=== PATIENT | female | born 1985 | race Caucasian/White ===

== ENCOUNTER 2022-06-06 01:42 | Emergency (ER) | payer OTHER, SELFPAY ==
--- NOTE | ~2022-06-06 | XR_ITS ---
EXAMINATION: XR finger 5th RT min 2V DATE: 06/06/2022 02:05 INDICATION: Right hand fifth digit injury. TECHNIQUE: 3 views of right hand fifth digit were obtained. COMPARISON: None. FINDINGS: Bone alignment is normal. No fracture. Joint spaces are well maintained. IMPRESSION: 1. No fracture. Reviewed, dictated and finalized at location A. IMPRESSION: 1. No fracture.
[2022-06-06 01:47] VITALS: BP 163/81; PULSE 88; RESP 16; TEMP 36.7; O2SAT 99
[2022-06-06] MEDS: IBUPROFEN 600 MG TABLET PO (02:22)
--- NOTE | 2022-06-06 02:22 | ED.GENADULT ---
HPI - General Adult General Chief complaint: Extremity Injury, Upper Stated complaint: right 5th finger injury Time Seen by Provider: 06/06/22 01:46 Source: RN notes reviewed History of Present Illness HPI narrative: Patient presents emergency department from home for right fifth finger pain. Patient states she initially hurt the finger 2 months ago when her family's puppy jumped up and hit her in the right pinky she states that she has had pain since that time but pain again became worse yesterday states she denies any new trauma or injury to the finger but states the pain is worse to extend she denies any redness or swelling of the finger states she has not taking pain medication she denies any numbness or tingling Related Data Allergies Allergy/AdvReac Type Severity Reaction Status Date / Time codeine Allergy Mild Other Verified 06/06/22 02:17 pseudoephedrine Allergy Unknown Other Verified 06/06/22 02:17 Review of Systems Review of Systems: Gen.: Denies fevers or chills Musculoskeletal: See HPI Neuro: Denies numbness, tingling, weakness Skin: Denies rash Endo: Denies DM PMFSH Past Medical History Medical History (Updated 06/06/22 @ 02:25 by Jacob Vicente DO) Patient denies significant medical history Social History Social History (Updated 06/06/22 @ 02:23 by Jacob Vicente DO) Smoking status: Never smoker Exam Narrative: APPEARANCE: No acute distress, nontoxic, resting in bed Eyes: EOMI HEENT: Normocephalic, atraumatic, RESPIRATORY: No respiratory distress MUSCULOSKELETAl: Right fifth finger is tender to palpation over the palmar and dorsal aspect of the proximal phalanx there is no swelling ecchymosis or erythema pain with extension of the right fifth digit at the MCP and PIP joint, not able to fully extend full flexion of the finger capillary refill less than 3 seconds neurovascular intact the remainder of the right hand is nontender to palpation NEURO: Awake and alert. Following commands, speech normal, no focal deficits SKIN:: Warm, dry. Normal Color no rash or lesions Course Course Emergency Course: Discussed with patient results of workup and diagnosis. Discussed need for follow-up with primary care, proper use of medication, and reasons to return to the emergency department. Patient understands and agrees to current treatment plan Vital Signs Vital signs: Vital Signs Temperature 98.0 F 06/06/22 01:47 Pulse Rate 88 06/06/22 01:47 Respiratory Rate 16 06/06/22 01:47 Blood Pressure 163/81 H 06/06/22 01:47 Pulse Oximetry 99 06/06/22 01:47 Oxygen Delivery Room Air 06/06/22 01:47 Temperature 98.0 F 06/06/22 01:47 Pulse Rate 88 06/06/22 01:47 Respiratory Rate 16 06/06/22 01:47 Blood Pressure 163/81 H 06/06/22 01:47 Pulse Oximetry 99 06/06/22 01:47 Oxygen Delivery Room Air 06/06/22 01:47 Medical Decision Making Vital Signs Vital Signs: Vital Signs Temperature 98.0 F 06/06/22 01:47 Pulse Rate 88 06/06/22 01:47 Respiratory Rate 16 06/06/22 01:47 Blood Pressure 163/81 H 06/06/22 01:47 Pulse Oximetry 99 06/06/22 01:47 Oxygen Delivery Room Air 06/06/22 01:47 Temperature 98.0 F 06/06/22 01:47 Pulse Rate 88 06/06/22 01:47 Respiratory Rate 16 06/06/22 01:47 Blood Pressure 163/81 H 06/06/22 01:47 Pulse Oximetry 99 06/06/22 01:47 Oxygen Delivery Room Air 06/06/22 01:47 Imaging Data Attestation: I personally reviewed and interpreted this imaging study as follows: My impression: Finger x-ray reviewed by myself shows no acute process Discharge Plan Discharge Clinical Impression: Other sprain of right little finger, initial encounter Patient Disposition: Home, Self-Care Condition: Stable Instructions: Antibiotic Form, Finger Sprain (ED) Additional Instructions: Return for increasing pain numbness or tingling the extremities or any other symptoms of concern Prescriptions: New ibuprofen 600
== END 2022-06-06 02:57 | disposition home or self-care (01) ==
PROVIDERS: Emergency Provider Emergency Medicine; PCP Family Medicine Adolescent Medicine
DX: S63.696A Other sprain of right little finger, initial encounter (principal); W54.1XXA Struck by dog, initial encounter
CPT/HCPCS: 29130; 73140; 99283; A9270

== ENCOUNTER 2022-06-17 09:00 | Outpatient (RCR) | payer OTHER, SELFPAY ==
--- NOTE | 2022-06-08 11:54 | OTOPEVAL1 ---
Assessment and note entered by Nael Hines, HARPREETR/Cj, CHT Evaluation Information Assessment Status Evaluation Diagnosis Acute stenosing tenosynovitis right small finger Subjective Information Patient reports an injury to the finger about two months ago when she was playing a puppy and her small finger accidently got hyperextended. She did not get this looked at back then. 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 She reports a sudden increased in pain and stiffness when she did a push up with her hands in tight fists. She states the pinky finger got stuck into flexion after this and was so painful she went to the ER ( 06/06/22). She has been splinted with the entire pinky immobilized x1 day. Has removed for shower/ hygiene. Reported Pain Level Pain Score 0: Self Report Additional Pain Score Comments At rest - no pain With active ROM - pain increases to 3/10 Assessment OT Clinical Summary Patient referred to outpatient OT with dx of stenosing tenosynovitis of the right small finger which is restricting her active motion and use of that hand due to pain, weakness, and stiffness. She will benefit from skilled OT for splinting, HEP instruction, modalities, ROM, and progression to strengthening to facilitate optimal functional hand use of her right, dominant hand. Plan of Care Interventions Therapeutic Exercise,Manual Therapy,Therapeutic Activities,Hot Pack/Cold Pack,Check Out for Orthotic/Pr,Ultrasound,Paraffin OT Services Indicated Yes Treatment Frequency and 1x/week for 4 weeks Duration These treatments will address the objective and functional deficits as defined above. The patient will be advanced safely and appropriately in order for the patient to progress towards his/her prior level of function. Additional exercises will be introduced and as well as a comprehensive home exercise program upon discharge, if needed, ?to ensure carryover of functional gains achieved in the clinic. This treatment plan has been reviewed and agreement upon by the patient.
--- NOTE | 2022-06-17 09:30 | OTOPDC ---
Assessment and note entered by Nael Hines, ENEDINA/Cj, CHT Evaluation Information Assessment Status Discharge Diagnosis Acute stenosing tenosynovitis right small finger Subjective Information Patient reports an injury to the finger about two months ago when she was playing a puppy and her small finger accidently got hyperextended. She did not get this looked at back then. 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 She reports a sudden increased in pain and stiffness when she did a push up with her hands in tight fists. She states the pinky finger got stuck into flexion after this and was so painful she went to the ER ( 06/06/22). She was referred to hand therapy and was initially evaluated last week on 06/08/22. A smaller custom splint was fabricated to just immobilize the MP joint and to allow motion at the IPs. She went between this one and completely immobilizing depending on her pain and activity levels. She presents today stating her hand is much better and she is even going without any splinting at times. She reports no functional limitations. Reported Pain Level Pain Score 2: Self Report Additional Pain Score Comments Patient reports intermittent pain, rating at 2/10. She states her pain does subside to 0/10 at times. Assessment OT Clinical Summary Patient referred to outpatient OT with dx of stenosing tenosynovitis of the right small finger. At this time her ROM has returned to normal limits and she is having less pain with ROM and functional hand use. She is intermittently wearing splints as needed, depending on pain and her activity level. At this time she is independent with all materials and reports being ready for discharge. Plan of Care OT Services Indicated No
== END 2022-08-23 14:36 | disposition home or self-care (01) ==
LOC: ANHOT 09:00
PROVIDERS: PCP Family Medicine Adolescent Medicine; Visit Provider Plastic Surgery
DX: M65.351 Trigger finger, right little finger (principal)
CPT/HCPCS: 97110; 97165; L3933

== ENCOUNTER 2024-05-30 16:36 | Outpatient (CLI) | payer OTHER, SELFPAY ==
[2024-05-30 16:59] LABS: Basophils Absolute Auto 0.06 K/mm3 (0.00-0.10); Basophils Percent Auto 0.7 % (0.0-1.0); Eosinophils Absolute Auto 0.33 K/mm3 (0.02-0.50); Hematocrit 40.2 % (35.0-49.0); Hemoglobin 13.1 g/dL (12.0-15.0); Immature Granulocyte Absolute 0.03 K/mm3 (0.00-0.00); Immature Granulocyte Percent A 0.4 % (0.0-0.0); Lymphocytes Absolute Auto 2.65 K/mm3 (1.10-4.50); Lymphocytes Percent Auto 32.5 % (18.0-42.0); Mean Corpuscular HGB Conc 32.6 g/dL (32-36); Mean Corpuscular Hemoglobin 27.9 pg (27.0-31.0); Mean Corpuscular Volume 85.7 fL (78.0-102.0); Mean Platelet Volume 9.2 fl (9.2-11.8); Monocytes Absolute Auto 0.42 K/mm3 (0.10-0.90); Monocytes Percent Auto 5.1 % (2.0-11.0); Neutrophils Absolute Auto 4.67 K/mm3 (1.70-7.20); Neutrophils Percent Auto 57.3 % (50.0-70.0); Platelet Count Result 297 K/mm3 (150-420); Red Blood Count 4.69 M/mm3 (4.20-5.40); Red Cell Distribution Width 13.3 % (11.6-14.4); White Blood Count 8.2 K/mm3 (4.8-10.8)
[2024-05-30 17:09] LABS: Hemoglobin A1C 5.3 % (<5.7)
[2024-05-30 17:33] LABS: Alanine Aminotransferase 32 U/L (14-59); Albumin Level 3.9 g/dL (3.4-5.0); Alkaline Phosphatase 91 U/L (46-116); Anion Gap 6 mmol/L (4-12); Aspartate Amino Transferase 20 U/L (15-37); Bilirubin,Total 0.3 mg/dL (0.00-1.00); Blood Urea Nitrogen 17 mg/dL (7-18); Calcium 8.9 mg/dL (8.5-10.1); Carbon Dioxide 29 mmol/L (21-32); Chloride 105 mmol/L (98-108); Cholesterol 154 mg/dL (0-200); Estimated Glomerular Filt Rate 57; Glucose 103 mg/dL (70-99); HDL Direct 40 mg/dL (40-60); LDL Cholesterol Calculated 90 mg/dL (<130); Osmolality Calculated 291 mOsm/kg (285-295); Potassium 4.2 mmol/L (3.5-5.1); Sodium 140 mmol/L (136-145); Total Protein 7.1 g/dL (6.4-8.2); Triglycerides 120 mg/dL (0-150)
[2024-05-30 17:41] LABS: Thyroid Stimulating Hormone Reflex 1.99 u/IU/mL (0.36-3.74)
== END 2024-05-30 16:37 | disposition home or self-care (01) ==
LOC: CHSLAB 16:38
PROVIDERS: PCP Nurse Practitioner Family; Visit Provider Nurse Practitioner Family
DX: Z00.00 Encounter for general adult medical examination without abnormal findings (principal)
CPT/HCPCS: 36415; 80053; 80061; 83036; 84443; 85025